=== PATIENT | female | born 1975 | race Caucasian/White ===

== ENCOUNTER 2019-04-20 17:42 | Emergency (ER) | payer BC ==
[2019-04-20] MEDS ORDERED: Sodium Chloride 0.9% 10 ML Syringe FLUSH PRN (17:54)
[2019-04-20] MEDS ORDERED: HYDROmorphone 1 MG/ML Syringe IVPUSH ONE ×2 (17:55→18:37)
--- NOTE | 2019-04-20 18:45 | EDM.PDOC ---
ED HPI GENERAL MEDICAL PROBLEM - General Chief Complaint: Lower Extremity Injury/Pain Stated Complaint: PINNED ARM IN A CATTLE PEN Time Seen by Provider: 04/20/19 17:50 Source of Information: Reports: Patient History Limitations: Reports: No Limitations - History of Present Illness INITIAL COMMENTS - FREE TEXT/NARRATIVE: Pt. presents to ER with complaints of R wrist pain. Pt. states that she was moving cattle and states that a cow pushed backward injuring the extremity. There was obvious angulation of the extremity. Denies any injury elsewhere. Denies any numbness/tingling in the extremity. She denies trauma elsewhere. Pt. states that her last oral intake was noon today. She has ever had problems with anesthesia in the past. Right Wrist Pain Score (Numeric/FACES): 7 - Related Data Allergies Allergy/AdvReac Type Severity Reaction Status Date / Time Sulfa (Sulfonamide Allergy Rash Verified 04/20/19 18:19 Antibiotics) Home Meds: Home Meds Desog-E.Estradiol/E.Estradiol [Desogestr-Eth Estrad Eth Estra] 1 tab PO ASDIRECTED 04/20/19 [History] Past Medical History - Past Health History Medical/Surgical History: Denies Medical/Surgical History Social & Family History - Tobacco Use Smoking Status *Q: Never Smoker - Recreational Drug Use Recreational Drug Use: No Review of Systems - Review of Systems Review Of Systems: See Below Constitutional: Reports: No Symptoms Musculoskeletal: Reports: Arm Pain (Pain and deformity to R wrist) ED EXAM, GENERAL - Physical Exam Exam: See Below General Appearance: Alert, WD/WN, No Apparent Distress Extremities: Other (deformity and pain to distal radius/ulna, appears to be a colles fx.) ED TRAUMA EXTREMITY PROCEDURES - Splinting Right Upper Extremity Pre-Procedure NV Status: Normal Post-Procedure NV Status: Normal Splint Material: Fiberglass Splint Design: Volar Applied & Form Fitted By: Provider Provider Post-Splint Application NV Check: NV Status Normal, Good Position Complications: No Course - Vital Signs Last Recorded V/S: Last Vital Signs Temp 36.6 C 04/20/19 17:50 Pulse 55 L 04/20/19 17:50 Resp 16 04/20/19 17:50 BP 102/71 04/20/19 17:50 Pulse Ox 100 04/20/19 17:50 - Orders/Labs/Meds Orders: Active Orders 24 hr Category Date Time Status Wrist Comp Min 3V Rt [CR] Stat Exams 04/20/19 17:53 Taken Sodium Chloride 0.9% [Saline Flush] Med 04/20/19 17:54 Active 10 ml FLUSH ASDIRECTED PRN Peripheral IV Insertion Adult [OM.PC] Routine Oth 04/20/19 17:54 Ordered Medication Orders Sodium Chloride (Saline Flush) 10 ml FLUSH ASDIRECTED PRN PRN Reason: Keep Vein Open Meds: Medications Generic Name Dose Route Start Last Admin Trade Name Freq PRN Reason Stop Dose Admin Sodium Chloride 10 ml 04/20/19 17:54 Saline Flush FLUSH ASDIRECTED PRN Keep Vein Open Discontinued Medications Generic Name Dose Route Start Last Admin Trade Name Freq PRN Reason Stop Dose Admin Hydromorphone HCl 1 mg 04/20/19 17:55 04/20/19 18:03 Dilaudid IVPUSH 04/20/19 17:56 1 mg ONETIME ONE Administration Hydromorphone HCl 0.5 mg 04/20/19 18:37 Dilaudid IVPUSH 04/20/19 18:38 ONETIME ONE - Radiology Interpretation Free Text/Narrative:: angulated fracture of R distal radius and ulna Departure - Departure Time of Disposition: 19:00 Disposition: DC/Tfer to [facility] Clinical Impression: Wrist fracture - Discharge Information Referrals: Lexi Eller MD [Primary Care Provider] - Forms: ED Department Discharge, Interfacility Transfer EMTALA - Problem List Review Problem List Initiated/Reviewed/Updated: Yes - My Orders Last 24 Hours: My Active Orders 04/20/19 17:53 Wrist Comp Min 3V Rt [CR] Stat 04/20/19 17:54 Sodium Chloride 0.9% [Saline Flush] 10 ml FLUSH ASDIRECTED PRN Peripheral IV Insertion Adult [OM.PC] Routine - Assessment/Plan Last 24 Hours: My Active Orders 04/20/19 17:53 Wrist Comp Min 3V Rt [CR] Stat 04/20/19 17:54 Sodium Chloride 0.9% [Saline Flush] 10 ml FLUSH ASDIRECTED PRN Peripheral IV Insertion Adult [OM.PC] Routine Plan: Spoke with Dr. Lewis at [facility]. He accepts patient in transfer via private vehicle. He do not have anesthesia on staff at this time. Pain was treated with IV dilaudid. The joint was splinted with a fiberglas splint. All questions were answered.
--- NOTE | 2019-04-20 19:41 | CR ---
[id number] RAD/RAD Wrist Right 3V Min EXAM: RIGHT WRIST 3 VIEWS INDICATION: Injured moving cattle. COMPARISON: None. DISCUSSION: There is an acute mildly impacted, mildly displaced and mild to moderately angulated fracture of the distal radial metaphysis. Mildly displaced fracture across the base of the ulnar styloid. Mild triscaphe osteoarthritis. IMPRESSION: 1. Acute impacted, angulated and displaced distal radial metaphysis fracture. 2. Acute mildly displaced ulnar styloid base fracture. Maurice Alaniz MD 04/20/19 1940 Thank you for allowing us to participate in the care of your patient.
== END 2019-04-20 19:15 | disposition short-term general hospital (02) ==
LOC: VM.ED 17:42
DX: S52.501A Unspecified fracture of the lower end of right radius, initial encounter for closed fracture (principal); S52.611A Displaced fracture of right ulna styloid process, initial encounter for closed fracture; Z88.2 Allergy status to sulfonamides; W55.22XA Struck by cow, initial encounter
CPT/HCPCS: 29125; 73110; 96374; 96376; 99283; J1170

== ENCOUNTER 2023-05-18 10:53 | Day surgery (SDC) | payer BC ==
[~2023-05-18 10:53] MED LIST: Lactated Ringers 1,000 ML IV SCH
[2023-05-18] MEDS ORDERED: fentaNYL 100 MCG/2 ML SDV ONE (12:46)
[2023-05-18] MEDS ORDERED: Propofol 200 MG/20 ML SDV ONE ×2 (12:46→13:09)
== END 2023-05-18 14:40 | disposition home or self-care (01) ==
LOC: VM.SDS 10:53
PROVIDERS: ATTEND Family Medicine
DX: D12.3 Benign neoplasm of transverse colon (principal); Q43.8 Other specified congenital malformations of intestine; Z83.79 Family history of other diseases of the digestive system; Z79.899 Other long term (current) drug therapy; Z88.2 Allergy status to sulfonamides
CPT/HCPCS: 00811; 45380; J2704; J3010; J7120